=== PATIENT | female | born 1955 | race Caucasian/White ===

== ENCOUNTER 2016-10-14 08:28 | Day surgery (SDC) | payer BC, SELFPAY ==
[~2016-10-14 08:28] MED LIST: Bupivacaine 0.25%/EPINEPHrine 1:200,000 10 ML SDV ONE; Lactated Ringers 1,000 ML IV SCH; ceFAZolin 2 GM in Premix Bag 1 BAG IV ONE
[2016-10-14] MEDS ORDERED: Bupivacaine 0.25%/EPINEPHrine 1:200,000 10 ML SDV INJECT ONE (09:00)
[2016-10-14] MEDS ORDERED: Acetaminophen/HYDROcodone 325-5 MG Tab PO PRN (09:00)
[2016-10-14] MEDS ORDERED: Lidocaine 2% 5 ML SDV ONE (09:10)
[2016-10-14] MEDS ORDERED: Propofol 200 MG/20 ML SDV ONE (09:10)
[2016-10-14] MEDS ORDERED: fentaNYL 100 MCG/2 ML SDV ONE (09:10)
[2016-10-14] MEDS ORDERED: fentaNYL 250 MCG/5 ML SDV ONE (09:10)
[2016-10-14] MEDS ORDERED: Midazolam 1 MG/ML 2 ML SDV ONE (09:10)
--- NOTE | 2016-10-14 09:26 | PCM.PREANE ---
Preanesthetic Assessment - Anesthesia/Transfusion/Family Hx Anesthesia History: Prior Anesthesia Reaction Type of Anesthesia Reaction: Excessive Nausea/Vomiting Family History of Anesthesia Reaction: No Transfusion History: No Prior Transfusion(s) - Review of Systems General: No Symptoms Pulmonary: No Symptoms Cardiovascular: No Symptoms Gastrointestinal: No symptoms Neurological: No Symptoms Other: Reports: None - Physical Assessment NPO Status Date: 10/13/16 NPO Status Time: 22:30 O2 Sat by Pulse Oximetry: 98 Respiratory Rate: 16 Vital Signs: Last Vital Signs Temp 36.3 C 10/14/16 08:50 Pulse 56 L 10/14/16 08:50 Resp 16 10/14/16 08:50 BP 129/79 10/14/16 08:50 Pulse Ox 98 10/14/16 08:50 Height: 1.83 m Weight: 81.647 kg ASA Class: 2 Mental Status: Alert & Oriented x3 Airway Class: Mallampati = 1 Dentition: Reports: Normal Dentition ROM/Head Extension: Full Lungs: Clear to auscultation, Normal respiratory effort Cardiovascular: Regular Rate, Regular Rhythm - Allergies Allergies/Adverse Reactions: Allergies Allergy/AdvReac Type Severity Reaction Status Date / Time No Known Allergies Allergy Verified 09/23/15 09:11 - Anesthesia Plan Pre-Op Medication Ordered: None - Acknowledgements Anesthesia Type Planned: General Anesthesia Pt an Appropriate Candidate for the Planned Anesthesia: Yes Alternatives and Risks of Anesthesia Discussed w Pt/Guardian: Yes Pt/Guardian Understands and Agrees with Anesthesia Plan: Yes PreAnesthesia Questionnaire HEENT History: Reports: Other (See Below) Other HEENT History: wears contacts/glasses Cardiovascular History: Reports: None Respiratory History: Reports: None Gastrointestinal History: Reports: None Genitourinary History: Reports: None Musculoskeletal History: Reports: Osteoarthritis Neurological History: Reports: None Psychiatric History: Reports: Anxiety, Depression Endocrine/Metabolic History: Reports: None Hematologic History: Reports: None Immunologic History: Reports: None Oncologic (Cancer) History: Reports: None Dermatologic History: Reports: Other (See Below) Other Dermatologic History: sun damaged skin - Past Surgical History Head Surgeries/Procedures: Reports: None GI Surgical History: Reports: Colonoscopy Female Surgical History: Reports: Tubal Ligation Other Female Surgeries/Procedures: hx laparotomy for ovarian cystectomy Neurological Surgical History: Reports: C-Spine, Lumbar Spine Other Neurological Surgeries/Procedures: hx back surgery x2 and neck surgery x1 Musculoskeletal Surgical History: Reports: Hip Replacement Other Musculoskeletal Surgeries/Procedures:: hx rhett hip replacement, neck surgery and lower back surgery - SUBSTANCE USE Smoking Status *Q: Former Smoker Tobacco Use Within Last Twelve Months: No Recreational Drug Use History: No - HOME MEDS Home Medications: Home Meds buPROPion [buPROPion XL] 1 tab PO DAILY 09/23/15 [History] Tretinoin [Retin-A] 1 applic TOP BEDTIME 10/09/16 [History] - CURRENT (IN HOUSE) MEDS Current Meds: Current Medications Hydrocodone Bitart/Acetaminophen (Metz 325-5 Mg) 1 tab PO Q4H PRN PRN Reason: Pain Lactated Ringer's (Ringers, Lactated) 1,000 mls @ 125 mls/hr IV ASDIRECTED [facility] Last Admin: 10/14/16 08:53 Dose: 125 mls/hr Discontinued Medications Bupivacaine HCl/Epinephrine Bitart (Marcaine 0.25%/Epinephrine 1:200,000) 30 ml INJECT ONETIME ONE Stop: 10/14/16 09:01 Bupivacaine HCl/Epinephrine Bitart (Marcaine 0.25%/Epinephrine 1:200,000) Confirm Administered Dose 40 ml .ROUTE .STK-MED ONE Stop: 10/14/16 07:14 Fentanyl (Sublimaze) Confirm Administered Dose 100 mcg .ROUTE .STK-MED ONE Stop: 10/14/16 09:11 Fentanyl (Sublimaze) Confirm Administered Dose 250 mcg .ROUTE .STK-MED ONE Stop: 10/14/16 09:11 Cefazolin Sodium/Dextrose 2 gm (/ Premix) 50 mls @ 100 mls/hr IV ONETIME ONE Stop: 10/14/16 08:29 Lidocaine (Xylocaine-Mpf 2%) Confirm Administered Dose 10 ml .ROUTE .STK-MED ONE Stop: 10/14/16 09:11 Midazolam HCl (Versed 1 Mg/Ml) Confirm Administered Dose 2 mg .ROUTE .STK-MED ONE Stop: 10/14/16 09:11 Propofol (Diprivan 20 Ml) Confirm Administered Dose 400 mg .ROUTE .STK-MED ONE Stop: 10/14/16 09:11
[2016-10-14] MEDS ORDERED: Ondansetron 4 MG/2 ML SDV ONE (10:14)
[2016-10-14] MEDS ORDERED: fentaNYL 100 MCG/2 ML SDV IVPUSH PRN (10:34)
[2016-10-14] MEDS ORDERED: Octyl 2-Cyanoacrylate 1 Tube ONE ×2 (10:42→10:44)
--- NOTE | 2016-10-14 11:26 | PCM.POSTAN ---
POST ANESTHESIA ASSESSMENT - MENTAL STATUS Mental Status: alert, oriented - RESPIRATORY Respiratory Status: respiratory rate WNL, airway patent, O2 saturation stable - CARDIOVASCULAR CV Status: pulse rate WNL, blood pressure stable - GASTROINTESTINAL GI Status: no symptoms - POST OP HYDRATION Hydration Status: adequate & stable
--- NOTE | 2016-10-14 12:23 | PCM48HPAN ---
Post Anesthesia Note - EVALUATION WITHIN 48HRS OF ANESTHETIC Vital Signs in Normal Range: Yes Patient Participated in Evaluation: Yes Respiratory Function Stable: Yes Airway Patent: Yes Cardiovascular Function Stable: Yes Hydration Status Stable: Yes Pain Control Satisfactory: Yes Nausea and Vomiting Control Satisfactory: Yes Mental Status Recovered: Yes
[2016-10-14 12:55] VITALS: BP 140/85
--- NOTE | 2016-10-17 10:29 | PCM.OPNOTE ---
- General Post-Op/Procedure Note Date of Surgery/Procedure: 10/14/16 Operative Procedure(s): painful abdominal scar revision with 24 cm complex closure Pre Op Diagnosis: painful abdominal scar Post-Op Diagnosis: Same Anesthesia Technique: General LMA, Local Primary Surgeon: Deanne Lucio Blender: Trina Hernadez Complications: None Condition: Good Free Text/Narrative:: [id number]
--- NOTE | 2016-10-17 12:38 | OR ---
SURGEON: YARIEL DISLA MD DATE OF PROCEDURE: 10/14/2016 PREOPERATIVE DIAGNOSIS: Abdominal scar with significant pain and tethering. POSTOPERATIVE DIAGNOSIS: Abdominal scar with significant pain and tethering. PROCEDURE: Scar revision of abdominal painful scar, total length of 24 cm, with 24 cm complex closure. GATE WATCHMAN: Trina Hernadez PA-C. INDICATIONS: Ms. Menezes is a 61-year-old female with abdominal scar from previous surgery in a low transverse pattern that tethers and causes significant pain. It also causes problems with hygiene due to its tethering. Risks and benefits of scar revision were discussed with her and she was in agreement to proceed. Risks were including, but not limited to bleeding, infection, damage to underlying or overlying structures, possible need for future interventions, and possible scarring. PROCEDURE IN DETAIL: After informed consent was obtained, placed on the chart. The patient was brought to the operating theater and laid in the supine position. After general anesthetic was obtained, the area was prepped and draped in a normal fashion and a time-out was completed to confirm side and site. 0.25% Marcaine was used in a field block of the area. Once adequately marked, attention was then paid to excision of the lesion. A #15 blade was used to dissect through skin and subcutaneous tissues in an elliptical fashion for total length of 24 cm. Once adequately excised, meticulous hemostasis was obtained using Bovie electrocautery for the skin and subcutaneous tissues. The skin was then reapproximated with deep fascial stitches using 2-0 PDS sutures. It was a minimal amount of undermining to allow appropriate closure without tension. Once the PDS sutures had been placed, attention was then paid to deep 3-0 Monocryl stitches and a running 4-0 subcuticular for the skin. Once adequately closed, the wounds were dressed with Steri-Strips, fluffs, tape, and a compression garment. The patient tolerated this well and all counts and needles were correct at the end of the case. Follow up: The patient will see us in clinic for evaluation next week and will wear the compression garment as much as possible until then. DARREN / NADIR /[id number] RESHMA
== END 2016-10-14 12:50 | disposition home or self-care (01) ==
LOC: MW.SDS 08:28
PROVIDERS: ATTEND Plastic Surgery
PROC: 0HB7XZZ Excision of Abdomen Skin, External Approach (ICD-10-PCS; principal; 2016-10-14)
DX: L90.5 Scar conditions and fibrosis of skin (principal); F41.9 Anxiety disorder, unspecified; F32.9 Major depressive disorder, single episode, unspecified; D18.00 Hemangioma unspecified site; M19.90 Unspecified osteoarthritis, unspecified site; Z87.891 Personal history of nicotine dependence; Z96.643 Presence of artificial hip joint, bilateral; Z98.51 Tubal ligation status; Z79.899 Other long term (current) drug therapy
CPT/HCPCS: 13101; 13102; A9270; J0690; J2250; J2405; J3010; J7120; 00400; J2704